=== PATIENT | female | born 1990 | race Caucasian/White ===

== ENCOUNTER 2019-12-04 12:58 | Emergency (ER) | payer OTHER ==
[~2019-12-04] VITALS: Ht 165.1 cm; Wt 85.7 kg
[2019-12-04 13:05] VITALS: BP 100/48
--- NOTE | 2019-12-04 13:10 | NUR ---
URINE CUP HANDED TO PT FOR SAMPLE
--- NOTE | 2019-12-04 13:18 | NUR ---
ALLERGIES: VICODIN NO HX NO RX
--- NOTE | 2019-12-04 13:18 | NUR ---
29 Y/O F C/C VAGINAL BLEEDING X 2 DAYS. PER PT NOTED RED-DISH SPOTTING ON THURSDAY, PT CONCERNED DUE TO HX OF MISCARRIAGES AND CURRENTLY BEING , 7 WEEKS. PT COMPLAINTS OF LOWER ABDOMINAL PAIN, 3/10, CRAMP SENSATION, RADIATING TO THE VAGINAL AREA. PT DENIES DYSURIA, FOUL ODOR, DISCHARGE. . SIDE RAIL X1.
--- NOTE | 2019-12-04 13:43 | NUR ---
LAB AT BEDSIDE
--- NOTE | 2019-12-04 13:43 | NUR ---
US AT BEDSIDE
[2019-12-04 14:02] LABS: BASOPHILS # (AUTO) 0.1 K/uL (0.00-0.22); EOSINOPHILS % (AUTO) 0.3 % (0.0-4.0); HEMATOCRIT 37.9 % (36-48); HEMOGLOBIN 12.6 g/dL (12.0-16.0); LYMPHOCYTES % (AUTO) 26.1 % (20.5-51.1); MEAN CORPUSCULAR HEMOGLOBIN 31 pg (27-31); MEAN CORPUSCULAR HGB CONC 33 g/dL (33-37); MEAN CORPUSCULAR VOLUME 93.2 fL (80-94); MONOCYTES # (AUTO) 0.5 K/uL (0.8-1.0); MONOCYTES % (AUTO) 6.3 % (1.7-9.3); NEUTROPHILS # (AUTO) 5.1 K/uL (1.8-7.7); NEUTROPHILS % (AUTO) 66.3 % (42.2-75.2); PLATELET COUNT (AUTO) 335 K/uL (140-450); RED BLOOD CELL COUNT(AUTO) 4.07 MIL/uL (4.20-5.40); RED CELL DISTRIBUTION WIDTH 13.5 % (11.6-13.7); WHITE BLOOD COUNT (AUTO) 7.7 K/uL (4.8-10.8)
[2019-12-04 14:10] LABS: ANION GAP 14.2 (8-16); CARBON DIOXIDE 23.6 mmol/L (21-32); CREATININE 0.7 mg/dL (0.6-1.3); POTASSIUM 4.8 mmol/L (3.5-5.1)
[2019-12-04 14:30] LABS: APPEARANCE,URINE CLEAR (CLEAR); BILIRUBIN,URINE NEGATIVE (NEGATIVE); BLOOD, URINE NEGATIVE (NEGATIVE); COLOR,URINE YELLOW (YELLOW); LEUKOCYTE ESTERASE ,URINE NEGATIVE (NEGATIVE); NITRITE, URINE NEGATIVE (NEGATIVE); PH,URINE 7.5 (5.0-9.0); UGLUCOSE TRACE (NEGATIVE)
[2019-12-04 15:06] VITALS: BP 112/58
--- NOTE | 2019-12-04 15:06 | NUR ---
Patient discharged with v/s stable. Written and verbal after care instructions given and explained. Patient verbalized understanding. Ambulatory with steady gait. All questions addressed prior to discharge. Advised to follow up with PMD.
== END 2019-12-04 15:06 | disposition home or self-care (01) ==
LOC: MED 12:58
DX: O26.851 Spotting complicating pregnancy, first trimester (principal); O26.891 Other specified pregnancy related conditions, first trimester; R10.9 Unspecified abdominal pain; Z88.5 Allergy status to narcotic agent; Z88.6 Allergy status to analgesic agent
CPT/HCPCS: 36415; 76802; 80048; 81003; 81025; 84702; 85025; 86900; 86901; 99284; Q0092

== ENCOUNTER 2020-04-24 14:18 | Observation (INO) | payer OTHER, SELFPAY ==
[~2020-04-24] VITALS: Ht 165.1 cm; Wt 85.7 kg
[2020-04-24] MEDS ORDERED: PNV91TAB10 PO (15:34)
[2020-04-24] MEDS ORDERED: OSC500 PO (15:34)
[2020-04-24] MEDS ORDERED: FERR-252 PO (15:34)
== END 2020-04-24 17:25 | disposition home or self-care (01) ==
LOC: MLD 14:18
PROVIDERS: ADMIT Obstetrics & Gynecology; ATTEND Obstetrics & Gynecology
DX: O36.8120 Decreased fetal movements, second trimester, not applicable or unspecified (principal); Z20.828 Contact with and (suspected) exposure to other viral communicable diseases; O30.042 Twin pregnancy, dichorionic/diamniotic, second trimester; Z88.5 Allergy status to narcotic agent; Z88.8 Allergy status to other drugs, medicaments and biological substances; Z3A.25 25 weeks gestation of pregnancy
CPT/HCPCS: 76810; 87426; G0378; Q0092

== ENCOUNTER 2023-11-17 11:51 | Emergency (ER) | payer OTHER ==
[~2023-11-17] VITALS: Ht 165.1 cm; Wt 77.1 kg
[~2023-11-17 11:51] MED LIST: FERR-252 PO; OSC500 PO; PNV91TAB10 PO
[2023-11-17 12:18] VITALS: BP 124/76; PULSE 77; RESP 18; TEMP 98.3; O2SAT 97
[2023-11-17 13:03] VITALS: BP 126/70; PULSE 88; RESP 20; TEMP 98; O2SAT 97
== END 2023-11-17 13:03 | disposition home or self-care (01) ==
LOC: MED 11:51
DX: S63.502A Unspecified sprain of left wrist, initial encounter (principal); Z79.899 Other long term (current) drug therapy; Z88.8 Allergy status to other drugs, medicaments and biological substances; Z88.6 Allergy status to analgesic agent; Z88.5 Allergy status to narcotic agent; X50.9XXA Other and unspecified overexertion or strenuous movements or postures, initial encounter; Y93.89 Activity, other specified; Y92.89 Other specified places as the place of occurrence of the external cause; Y99.8 Other external cause status
CPT/HCPCS: 73110; 99283